=== PATIENT | female | born 1985 | race Two or more races ===

== ENCOUNTER 2021-05-26 18:13 | Emergency (ER) | payer MEDICAID ==
[~2021-05-26] VITALS: Ht 160 cm; Wt 91.0 kg
[2021-05-26 18:18] VITALS: BP 107/55
== END 2021-05-26 19:40 | disposition left against medical advice (07) ==
LOC: ER 18:13
DX: R10.9 Unspecified abdominal pain (principal); Z53.21 Procedure and treatment not carried out due to patient leaving prior to being seen by health care provider

== ENCOUNTER 2025-06-05 18:56 | Emergency (ER) | payer MEDICAID ==
[~2025-06-05] VITALS: Ht 162.6 cm; Wt 100.0 kg
[2025-06-05 19:40] VITALS: O2SAT 100
[2025-06-05] MEDS: SODIUM CHLORIDE 0.9% 1,000 ML IV ONE (21:11)
[2025-06-05 21:13] LABS: BG DEOXYHEMOGLOBIN 55.2 % (0.0-5.0)
[2025-06-05 21:20] LABS: BASOPHILS % 0.5 % (0.0-2.0); EOSINOPHILS % 4.2 % (0.0-5.0); HEMATOCRIT. 41.7 % (36.0-48.0); HEMOGLOBIN. 13.9 g/dL (12.0-16.0); LYMPHOCYTES % 26.1 % (20.0-50.0); MEAN PLATELET VOLUME 8.5 fl (7.4-10.4); MONOCYTES % 7.1 % (2.0-8.0); NEUTROPHILS % 62.1 % (40.0-76.0); PLATELET 255 x1000/uL (130-400); RED BLOOD CELL COUNT 4.99 mill/uL (4.2-5.4); RED CELL DISTRIBUTION WIDTH 14.6 % (11.6-14.6)
[2025-06-05 21:20] LABS: CLARITY URINE CLEAR (CLEAR); COLOR URINE YELLOW (YELLOW); GLUCOSE URINE 3+ (NEGATIVE); KETONES URINE 1+ (NEGATIVE); LEUKOCYTE ESTERASE URINE NEGATIVE (NEGATIVE); NITRITE URINE NEGATIVE (NEGATIVE); OCCULT BLOOD URINE NEGATIVE (NEGATIVE); PH URINE 5.5 (4.5-8.0); PROTEIN URINE NEGATIVE (NEGATIVE); SPECIFIC GRAVITY URINE 1.043 (1.005-1.030); UROBILINOGEN URINE 0.2 E.U./dL (0.2-1.0)
[2025-06-05 21:32] LABS: CREATININE 0.7 mg/dL (0.6-1.0)
[2025-06-05 21:33] LABS: HCG SCREEN NEGATIVE; PROTEIN TOTAL 7.4 g/dL (6.0-8.3); UREA NITROGEN BLOOD 8 mg/dL (9-23)
[2025-06-05 21:34] LABS: TROPONIN I HIGH SENSITIVITY < 4 ng/L (3.0-34)
[2025-06-05 21:35] LABS: ASPARTATE AMINOTRANSFERASE < 8 IU/L (<34); BILIRUBIN TOTAL 0.3 mg/dL (0.1-1.0)
[2025-06-05 21:44] LABS: BACTERIA URINE TRACE; RBC URINE NONE SEEN /hpf (0-2); SQUAMOUS EPITHELIAL CELL URINE FEW /lpf (RARE/1+); WBC URINE NONE SEEN /hpf (0-2)
[2025-06-05 23:26] VITALS: BP 142/76; PULSE 72; RESP 16; TEMP 36.6; O2SAT 99
== END 2025-06-05 23:27 | disposition home or self-care (01) ==
LOC: ER 18:56
DX: E11.65 Type 2 diabetes mellitus with hyperglycemia (principal); I10 Essential (primary) hypertension; R06.02 Shortness of breath
CPT/HCPCS: 80053; 81003; 81025; 82010; 82962; 84703; 83880; 85025; 84484; 36415; 71045; 82375; 82803; 93005; 96360; 99285; J7030; Z7610